=== PATIENT | female | born 1990 | race Caucasian/White ===

== ENCOUNTER 2023-11-12 12:28 | Emergency (ER) | payer MEDICAID ==
[~2023-11-12] VITALS: Ht 160 cm; Wt 52.2 kg
[2023-11-12] MEDS ORDERED: dexaMETHasone SOD PHOSPHATE 1 ML ONE (13:13)
[2023-11-12] MEDS ORDERED: diphenhydrAMINE HCL 50 MG/ML VIAL ONE (13:13)
[2023-11-12] MEDS ORDERED: FAMOTIDINE (20 MG) 20 MG TABLET ONE (13:14)
[2023-11-12] MEDS: FAMOTIDINE (20 MG) 20 MG TABLET PO ONE (13:26)
[2023-11-12] MEDS: diphenhydrAMINE HCL 50 MG/ML VIAL IM ONE (13:26)
[2023-11-12] MEDS: dexaMETHasone SOD PHOSPHATE 10 MG/ML VIAL IM ONE (13:26)
[2023-11-12 14:09] VITALS: BP 89/66; TEMP 98.1; O2SAT 97
== END 2023-11-12 14:10 | disposition home or self-care (01) ==
LOC: ER 12:54
DX: T78.40XA Allergy, unspecified, initial encounter (principal); Z88.2 Allergy status to sulfonamides; Z88.0 Allergy status to penicillin; Z88.8 Allergy status to other drugs, medicaments and biological substances; X58.XXXA Exposure to other specified factors, initial encounter
CPT/HCPCS: 99284; 96372 ×2; J1100; J1200